=== PATIENT | female | born 1985 | race Two or more races ===

== ENCOUNTER 2019-08-22 14:36 | Inpatient (IN) | payer OTHER ==
[~2019-08-22] VITALS: Ht 165.1 cm; Wt 82.1 kg
[2019-10-02] MEDS ORDERED: PRENATAL PLUS1 EAC1 PO (08:49)
== END 2019-10-04 13:30 | disposition home or self-care (01) | DRG 807 ==
LOC: OB/GYN 10-02 08:04 → LDR 10-02 08:04 → OB/GYN 10-02 22:59
PROVIDERS: ADMIT Obstetrics & Gynecology
PROC: 10E0XZZ Delivery of Products of Conception, External Approach (ICD-10-PCS; principal; 2019-10-02)
PROC: 0HQ9XZZ Repair Perineum Skin, External Approach (ICD-10-PCS; 2019-10-02)
PROC: 3E0P7VZ Introduction of Hormone into Female Reproductive, Via Natural or Artificial Opening (ICD-10-PCS; 2019-10-02)
PROC: 3E033VJ Introduction of Other Hormone into Peripheral Vein, Percutaneous Approach (ICD-10-PCS; 2019-10-02)
PROC: 10907ZC Drainage of Amniotic Fluid, Therapeutic from Products of Conception, Via Natural or Artificial Opening (ICD-10-PCS; 2019-10-02)
PROC: 4A1HXCZ Monitoring of Products of Conception, Cardiac Rate, External Approach (ICD-10-PCS; 2019-10-02)
DX: O70.0 First degree perineal laceration during delivery (principal); Z37.0 Single live birth; Z3A.39 39 weeks gestation of pregnancy